=== PATIENT | male | born 1990 | race Caucasian/White ===

== ENCOUNTER 2017-01-28 10:02 | Emergency (ER) | payer SELFPAY ==
[~2017-01-28] VITALS: Ht 188 cm; Wt 83.9 kg
--- NOTE | 2017-01-28 10:11 | PHYS DOC ---
Adult General Chief Complaint Chief Complaint: OTHER COMPLAINTS HPI HPI Patient is a 26 year old male who presents with sores on his chin, abdomen, for head. He states his been there for one to 2 weeks. He said she tried [id number] anti-itch cream and it made it hurt worse. He denies any fevers chills nausea or vomiting. He's concerned that he might he got this from his previous roommate. He states he's had a tetanus shot within the last 5 years. He denies any allergies to medicines, he denies any past medical history , he being on any medicines currently. He states he noticed some lesions on his abdominal wall after he shaved it. Review of Systems Review of Systems Constitutional: Denies fever or chills [] Eyes: Denies change in visual acuity, redness, or eye pain [] HENT: Denies nasal congestion or sore throat [] Respiratory: Denies cough or shortness of breath [] Cardiovascular: No additional information not addressed in HPI [] GI: Denies abdominal pain, nausea, vomiting, bloody stools or diarrhea [] : Denies dysuria or hematuria [] Musculoskeletal: Denies back pain or joint pain [] Integument: Positive for rash. Neurologic: Denies headache, focal weakness or sensory changes [] Endocrine: Denies polyuria or polydipsia [] All other systems were reviewed and found to be within normal limits, except as documented in this note. Physical Exam Physical Exam Constitutional: Well developed, well nourished, no acute distress, non-toxic appearance. [] HENT: Normocephalic, atraumatic, bilateral external ears normal, oropharynx moist, no oral exudates, nose normal. [] Eyes: PERRLA, EOMI, conjunctiva normal, no discharge. [] Neck: Normal range of motion, no tenderness, supple, no stridor. [] Cardiovascular:Heart rate regular rhythm, no murmur [] Lungs & Thorax: Bilateral breath sounds clear to auscultation [] Abdomen: Bowel sounds normal, soft, no tenderness, no masses, no pulsatile masses. [] Skin: Erythema/rash on for had approximately 1 cm in diameter, crusty type lesions on chin, resembling impetigo, erythema and pustules noted on abdomen below bellybutton 4-5 lesions. Back: No tenderness, no CVA tenderness. [] Extremities: No tenderness, no cyanosis, no clubbing, ROM intact, no edema. [] Neurologic: Alert and oriented X 3, normal motor function, normal sensory function, no focal deficits noted. [] Psychologic: Affect normal, judgement normal, mood normal. [] EKG EKG [] Radiology/Procedures Radiology/Procedures [] Impressions: Cellulitis/impetigo Course & Med Decision Making Course & Med Decision Making Pertinent Labs and Imaging studies reviewed. (See chart for details) She does not appear to be sick or septic. His tetanus is up-to-date. He is being discharged with the myosin 300 mg every 6 hours for 7 days in addition to Bactroban to be used topically 3-4 times daily and to use Hibiclens every other day for week. Return precautions given for fevers, nausea, worsening symptoms. He does not have a primary care physician therefore he's been given the information to obtain one. Meri Disclaimer Dragon Disclaimer This electronic medical record was generated, in whole or in part, using a voice recognition dictation system. Departure Departure Impression: Primary Impression: Cellulitis Disposition: 01 HOME, SELF-CARE Condition: STABLE Patient Instructions: Cellulitis Additional Instructions: Your skin lesions looks like there and infected and need antibiotics. You can use Bactroban she can purchase [id number] which is an antibiotic ointment to be used 3-4 times daily on the areas of concern on your for head, chin, abdomen. He also need to purchase Hibiclens which he can purchase over-the- counter ear pharmacy. It is a SOAP and you will need to lab her up with it every other day for about a week. After you apply the soap/hibiclens, allow it to soak in for 10 minutes and then rinse it off with soap and water. You will also need to use clindamycin which is a prescription item that he take by mouth 4 times daily for the next 7 days. If you develop any fevers, nausea, this skin lesions looks worse, you have any other concerns please return back to emergency department. You were given a list of primary care physicians that you can follow-up with. Please pick one call them and schedule appointment with. Scripts Clindamycin Hcl (CLINDAMYCIN HCL) 300 Mg Capsule 300 MG PO QID for 7 Days, #28 CAP Prov: LAWANDA AVILA MD 01/28/17 LAWANDA AVILA MD Jan 28, 2017 10:11
[2017-01-28 10:15] VITALS: BP 155/79
[2017-01-28] MEDS ORDERED: CLIN300C8 PO (10:39)
[2017-01-28] MEDS ORDERED: CLINDAMYCIN HCL 150 MG CAPSULE. PO ONE (10:45)
== END 2017-01-28 10:55 | disposition home or self-care (01) ==
LOC: ER 10:02
DX: L03.211 Cellulitis of face (principal); L01.00 Impetigo, unspecified
CPT/HCPCS: 99283

== ENCOUNTER 2017-08-03 21:37 | Emergency (ER) | payer SELFPAY | END 2017-08-03 22:05 | disposition left against medical advice (07) | LOC: ER 21:37 | DX: R10.9 Unspecified abdominal pain (principal); Z53.21 Procedure and treatment not carried out due to patient leaving prior to being seen by health care provider ==

== ENCOUNTER 2018-04-09 06:58 | Emergency (ER) | payer SELFPAY ==
[~2018-04-09] VITALS: Ht 188 cm; Wt 83.9 kg
[~2018-04-09 06:58] MED LIST: CLIN300C8 PO
[2018-04-09] MEDS ORDERED: HYDR-3164 PO (07:51)
[2018-04-09] MEDS ORDERED: CEPH-264 PO (07:51)
--- NOTE | 2018-04-09 08:04 | PHYS DOC ---
Past Medical History Past Medical History: No Pertinent History, Bipolar, Hypertension Past Surgical History: No Surgical History Additional Information: 1 PACK A DAY. Alcohol Use: None Drug Use: None Adult General Chief Complaint Chief Complaint: DENTAL PROBLEM HPI HPI Patient is a 27 year old male with history of bipolar disorder presents with upper and lower left sided molar pain. Patient reports pain for the past 2 weeks. He is taken ibuprofen and Tylenol with limited relief. He is not participated routine dental care and has not scheduled appointment with the dentist. No dysphonia trismus, dysphagia or drooling. No other acute symptoms or complaints. Patient is a current smoker.[] Review of Systems Review of Systems Review symptoms as per history of present illness. All other review symptoms are negative. All other systems were reviewed and found to be within normal limits, except as documented in this note. Allergies Allergies Allergies Coded Allergies Type Severity Reaction Last Updated Verified No Known Drug Allergies 01/28/17 No Physical Exam Physical Exam Constitutional: Well developed, well nourished, no acute distress, non-toxic appearance. [] HENT: Normocephalic, atraumatic, bilateral external ears normal, oropharynx moist, mouth, widespread dental caries left upper, obvious soft tissue abscess. No dysphonia drooling or -. [] Eyes: PERRLA, EOMI, conjunctiva normal, no discharge. [] Neurologic: Alert and oriented X 3, normal motor function, normal sensory function, no focal deficits noted. [] Psychologic: Affect normal, judgement normal, mood normal. [] Current Patient Data Vital Signs Vital Signs Date Time Temp Pulse Resp B/P (MAP) Pulse Ox O2 Delivery O2 Flow Rate FiO2 04/09/18 07:22 97.9 100 20 126/69 (88) 97 Room Air 97.9 EKG EKG [] Radiology/Procedures Radiology/Procedures [] Course & Med Decision Making Course & Med Decision Making Pertinent Labs and Imaging studies reviewed. (See chart for details) [Patient has plans to follow-up with walk-in local dental clinic] Dragon Disclaimer Dragon Disclaimer This electronic medical record was generated, in whole or in part, using a voice recognition dictation system. Departure Departure Impression: Primary Impression: Dental caries Additional Impression: Dentalgia Disposition: 01 HOME, SELF-CARE Condition: GOOD Patient Instructions: Dental Pain, [id number] Additional Instructions: Please take antibiotics as directed and ibuprofen for pain. Take hydrocodone as needed for additional relief. Scripts Hydrocodone/Apap 5-325 (NORCO 5-325 TABLET) 1 Each Tablet 1 TAB PO TID, #10 TAB Prov: ERICKA REYES DO 04/09/18 Cephalexin (KEFLEX) 500 Mg Capsule 1 CAP PO TID, #30 CAP Prov: ERICKA REYES DO 04/09/18 Problem Qualifiers ERICKA REYES DO Apr 09, 2018 08:04
== END 2018-04-09 08:02 | disposition home or self-care (01) ==
LOC: ER 06:58
DX: K02.9 Dental caries, unspecified (principal); F31.9 Bipolar disorder, unspecified; I10 Essential (primary) hypertension; F17.200 Nicotine dependence, unspecified, uncomplicated
CPT/HCPCS: 99283

== ENCOUNTER 2019-05-12 19:35 | Emergency (ER) | payer BC ==
[~2019-05-12] VITALS: Ht 188 cm; Wt 68.1 kg
[~2019-05-12 19:35] MED LIST changes: +CEPH-264 PO; +HYDR-3164 PO
[2019-05-12 20:04] VITALS: BP 129/72
[2019-05-12] MEDS ORDERED: CEPH-264 PO (20:33)
[2019-05-12] MEDS ORDERED: MUPI22OI2 TP (20:33)
--- NOTE | 2019-05-12 20:33 | PHYS DOC ---
Past Medical History Past Medical History: No Pertinent History, Bipolar, Hypertension Past Surgical History: No Surgical History Smoking Status: Current Every Day Smoker Alcohol Use: None Drug Use: None Adult General Chief Complaint Chief Complaint: SKIN PROBLEM HPI HPI Patient is a 28 year old male who presents to the ER with complaints of a red swollen area to his left forearm since this morning. Pt states he thinks a spider bit him. He denies any fever. Pt denies any numbness, tingling, or weakness of the LUE. He denies any drainage or bleeding from the site. Pt denies any intravenous drug use, he admits to smoking marijuana. Currently the pain is a 7/10 on the pain scale if the area is touched, it is a constant 5/10. Pt denies taking any OTC pain medication for relief of his discomfort. Review of Systems Review of Systems Complete ROS is negative unless otherwise noted in HPI. Allergies Allergies Allergies Coded Allergies Type Severity Reaction Last Updated Verified No Known Drug Allergies 01/28/17 No Physical Exam Physical Exam See Above Constitutional: Well developed, well nourished, no acute distress, non-toxic appearance. [] HENT: Normocephalic, atraumatic, bilateral external ears normal, nose normal. [] Eyes: PERRLA, EOMI, conjunctiva normal, no discharge. [] Neck: Normal range of motion, no stridor. [] Cardiovascular:Heart rate regular rhythm Lungs & Thorax: Respirations even and unlabored, no retractions, no respiratory distress Skin: Warm, dry; 6 cm diameter area of erythema and warmth noted to anterior left forearm with 2 small pustules that drained a scant amount of green drainage consistent with insect bite with cellulitis Back: No tenderness Extremities: No bony tenderness, no cyanosis, no clubbing, ROM intact Neurologic: Alert and oriented X 3, no focal deficits noted. [] Psychologic: Affect normal, judgement normal, mood normal. [] Current Patient Data Vital Signs Vital Signs Date Time Temp Pulse Resp B/P (MAP) Pulse Ox O2 Delivery O2 Flow Rate FiO2 05/12/19 20:04 97.9 75 16 129/72 (91) 98 Room Air 97.9 EKG EKG [] Radiology/Procedures Radiology/Procedures [] Course & Med Decision Making Course & Med Decision Making Pertinent Labs and Imaging studies reviewed. (See chart for details) [] Dragon Disclaimer Dragon Disclaimer This electronic medical record was generated, in whole or in part, using a voice recognition dictation system. Departure Departure Impression: Primary Impression: Infected insect bite of forearm Additional Impression: Cellulitis of left forearm Disposition: HOME, SELF-CARE Condition: STABLE Referrals: NO PCP (PCP) Patient Instructions: Cellulitis, [id number], Insect Bite, [id number] Additional Instructions: Fill the prescriptions and use them as directed. You may take Tylenol or ibuprofen as needed for pain. Follow-up with your primary care doctor next week, return to the ER if you develop a fever, or if you experienced increased redness, warmth, or drainage from the site. Scripts Mupirocin (MUPIROCIN OINTMENT) 22 Gm Oint...g. 1 ROBIN TP TID for WOUND CARE for 7 Days, #1 TUBE 0 Refills Prov: GIOVANA BEYER APRN 05/12/19 Cephalexin (KEFLEX) 500 Mg Capsule 500 MG PO QID for 7 Days, #28 CAP 0 Refills Prov: GIOVANA BEYER APRN 05/12/19 Problem Qualifiers Primary Impression: Infected insect bite of forearm Encounter type: initial encounter Laterality: left Qualified Codes: S50.862A - Insect bite (nonvenomous) of left forearm, initial encounter; L08.9 - Local infection of the skin and subcutaneous tissue, unspecified; W57.XXXA - Bitten or stung by nonvenomous insect and other nonvenomous arthr opods, initial encounter GIOVANA BEYER APRN May 12, 2019 20:33
== END 2019-05-12 20:39 | disposition home or self-care (01) ==
LOC: ER 19:35
DX: S50.862A Insect bite (nonvenomous) of left forearm, initial encounter (principal); L03.114 Cellulitis of left upper limb; I10 Essential (primary) hypertension; F31.9 Bipolar disorder, unspecified; F17.200 Nicotine dependence, unspecified, uncomplicated; W57.XXXA Bitten or stung by nonvenomous insect and other nonvenomous arthropods, initial encounter; Y93.89 Activity, other specified; Y92.89 Other specified places as the place of occurrence of the external cause; Y99.8 Other external cause status
CPT/HCPCS: 99283

== ENCOUNTER 2020-01-24 03:12 | Emergency (ER) | payer SELFPAY ==
[~2020-01-24] VITALS: Ht 188 cm; Wt 80.0 kg
[2020-01-24 03:12] VITALS: BP 135/88
[~2020-01-24 03:12] MED LIST changes: +MUPI22OI2 TP
[2020-01-24] MEDS ORDERED: metroNIDAZOLE 500 MG TABLET PO ONE (03:30)
[2020-01-24] MEDS ORDERED: LIDOCAINE 2% VISCOUS 15 ML SOLUTION. MM ONE (03:30)
[2020-01-24] MEDS ORDERED: ONDANSETRON ODT 4 MG TAB.RAPDIS. PO ONE (03:30)
[2020-01-24] MEDS ORDERED: cefTRIAXone IM 250 MG VIAL IM ONE (03:30)
[2020-01-24] MEDS ORDERED: AZITHROMYCIN 250 MG TABLET. PO ONE (03:30)
[2020-01-24] MEDS ORDERED: IMIQ1CRE17 TP (03:37)
[2020-01-24] MEDS ORDERED: CLIN300C8 PO (03:39)
--- NOTE | 2020-01-24 03:44 | ED.ADGEN ---
Past Medical History Past Medical History: No Pertinent History, Bipolar, Hypertension Past Surgical History: No Surgical History Smoking Status: Current Every Day Smoker Alcohol Use: None Drug Use: None General Adult EDM: Chief Complaint: ABSCESS HPI: HPI: Patient is 29-year-old male who presents to the emergency room complaining of anal pain. He states that he developed these lesions several months ago but over the last couple of days they have gotten significantly more painful. He states that there is burning and itching around them. It is hard for him to sit down. He is having bowel movements but it is painful. He denies any other lesions. She denies any dysuria or penile discharge. He has had some discharge around the lesions and some bleeding. Review of Systems: Review of Systems: Complete ROS is negative unless otherwise documented in HPI Current Medications: Current Medications Medications (Trade) Dose Ordered Sig/Tootie Start Time Stop Time Status Last Admin Dose Admin Azithromycin (Zithromax) 1,000 mg 1X ONCE 01/24/20 03:30 01/24/20 03:31 DC 01/24/20 03:45 1,000 MG Ceftriaxone Sodium (Rocephin Im) 250 mg 1X ONCE 01/24/20 03:30 01/24/20 03:31 DC 01/24/20 03:45 250 MG Lidocaine HCl (Viscous Lidocaine) 15 ml 1X ONCE 01/24/20 03:30 01/24/20 03:31 DC 01/24/20 03:44 15 ML Metronidazole (Flagyl) 2,000 mg 1X ONCE 01/24/20 03:30 01/24/20 03:31 DC 01/24/20 03:45 2,000 MG Ondansetron HCl (Zofran Odt) 4 mg 1X ONCE 01/24/20 03:30 01/24/20 03:31 DC 01/24/20 03:45 4 MG Allergies: Allergies: Allergies Coded Allergies Type Severity Reaction Last Updated Verified No Known Drug Allergies 01/28/17 No Physical Exam: PE: General: Awake, alert, NAD. Well Nourished, well hydrated. Cooperative HEENT: Atraumatic, EOMI, PERRL, airway patent, moist oral mucosa Neck: Supple, trachea midline Respiratory: CTA bilaterally, normal effort, no wheezing/crackles CV: RRR, no murmur, cap refill <2 GI: Soft, nondistended, nontender, no masses : raised textured plaque lesions on bilateral rectal folds with surrounding erythema, no bleeding or discharge noted MSK: No obvious deformities Skin: Warm, dry, intact Neuro: A&O x3, speech NL, sensory and motor grossly intact, no focal deficits Psych: Normal affect, normal mood, not suicidal or homicidal Current Patient Data: Labs: Laboratory Tests Test 01/24/20 04:33 Urine Collection Type Unknown Urine Color Yellow Urine Clarity Clear Urine pH 6.5 (<5.0-8.0) Urine Specific [place] 1.020 (1.000-1.030) Urine Protein Negative mg/dL (NEG-TRACE) Urine Glucose (UA) Negative mg/dL (NEG) Urine Ketones (Stick) Negative mg/dL (NEG) Urine Blood Negative (NEG) Urine Nitrite Negative (NEG) Urine Bilirubin Negative (NEG) Urine Urobilinogen Dipstick 1.0 mg/dL (0.2 mg/dL) Urine Leukocyte Esterase Negative (NEG) Urine RBC Occ /HPF (0-2) Urine WBC Occ /HPF (0-4) Urine Squamous Epithelial Cells Occ /LPF Urine Amorphous Sediment Present /HPF Urine Bacteria 0 /HPF (0-FEW) Urine Mucus Marked /LPF Vital Signs: Vital Signs Date Time Temp Pulse Resp B/P (MAP) Pulse Ox O2 Delivery O2 Flow Rate FiO2 01/24/20 03:12 97.6 103 18 135/88 (104) 98 97.6 EKG: EKG: [] Heart Score: Risk Factors: Risk Factors: DM, Current or recent (<one month) smoker, HTN, HLP, family history of CAD, obesity. Risk Scores: Score 0 - 3: 2.5% MACE over next 6 weeks - Discharge Home Score 4 - 6: 20.3% MACE over next 6 weeks - Admit for Clinical Observation Score 7 - 10: 72.7% MACE over next 6 weeks - Early Invasive Strategies Radiology/Procedures: Radiology/Procedures: [] Course & Med Decision Making: Course & Med Decision Making Pertinent Labs and Imaging studies reviewed. (See chart for details) Patient is a 29-year-old male who presents to the emergency room with lesions around his rectum. These lesions are consistent with condyloma acuminata. It appears they may be infected. Will start antibiotics. CT pelvis ordered to rule out invasive lesions. Discussed with patient he will need to follow up with surgery and his best option without insurance may be [facility] or . Patient states understanding. Will treat for all other STDs. Meri Disclaimer: Meri Disclaimer: This electronic medical record was generated, in whole or in part, using a voice recognition dictation system. Departure Departure Impression: Primary Impression: Condyloma acuminatum in male Referrals: NO PCP (PCP) Patient Instructions: HPV Scripts Clindamycin Hcl (CLINDAMYCIN HCL) 300 Mg Capsule 1 CAP PO TID, #21 CAP Prov: RIYA AUGUSTIN MD 01/24/20 Imiquimod (ALDARA) 1 Each Cream.pack 1 ROBIN TP UD for 30 Days, #12 PACKET 0 Refills apply to the affected area(s) before bedtime 3 times per week and leave on skin for 6 to 10 hours Prov: RIYA AUGUSTIN MD 01/24/20 RIYA AUGUSTIN MD Jan 24, 2020 03:43
--- NOTE | 2020-01-24 04:21 | RAD ---
CT pelvis with contrast HISTORY: Anal lesion Axial helical images were obtained of the pelvis without contrast and axial coronal and sagittal reconstruction was performed. FINDINGS: There is multiple mildly enlarged lymph nodes in the groin bilaterally and along the iliac chain bilaterally. There is no free fluid. The prostate is not enlarged. The appendix is not well seen. IMPRESSION: Mild lymphadenopathy. This could be reactive. End impression PQRS Compliance Statement: One or more of the following individualized dose reduction techniques were utilized for this examination: 1. Automated exposure control 2. Adjustment of the mA and/or kV according to patient size 3. Use of iterative reconstruction technique Electronically signed by: Stu Hinson III, MD (01/24/2020 4:19 AM) [facility]
[2020-01-24 04:40] LABS: BILIRUBIN,URINE NEGATIVE (NEG); CLARITY,URINE CLEAR; COLOR,URINE YELLOW; NITRITE,URINE NEGATIVE (NEG); PH,URINE 6.5 (<5.0-8.0); PROTEIN,URINE NEGATIVE (NEG-TRACE)
[2020-01-24 04:45] LABS: AMORPHOUS SEDIMENT,UR PRESENT /HPF; BACTERIA,URINE 0 /HPF (0-FEW); RBC,URINE OCC /HPF (0-2); WBC,URINE OCC /HPF (0-4)
== END 2020-01-24 04:52 | disposition home or self-care (01) ==
LOC: ER 03:12
DX: A63.0 Anogenital (venereal) warts (principal); K62.89 Other specified diseases of anus and rectum; R30.9 Painful micturition, unspecified; L29.9 Pruritus, unspecified; F31.9 Bipolar disorder, unspecified; I10 Essential (primary) hypertension; F17.200 Nicotine dependence, unspecified, uncomplicated
CPT/HCPCS: 72192; 81001; 87491; 87591; 96372; 99284; J0696

== ENCOUNTER 2021-07-15 20:53 | Emergency (ER) | payer SELFPAY ==
[~2021-07-15] VITALS: Ht 188 cm; Wt 72.0 kg
[~2021-07-15 20:53] MED LIST changes: +CLIN-94 PO; -CLIN300C8 PO; +IMIQ1CRE17 TP
[2021-07-15 21:16] LABS: BASO # 0.1 x10^3/uL (0.0-0.2); BASO % 1 % (0-3); EOS # 0.1 x10^3/uL (0.0-0.7); EOS % 1 % (0-3); HEMATOCRIT 46.9 % (39.0-53.0); HEMOGLOBIN 16.2 g/dL (13.0-17.5); LYMPH # 2.1 x10^3/uL (1.0-4.8); LYMPH % 14 % (24-48); MEAN CORPUSCULAR HEMOGLOBIN 32 pg (25-35); MEAN CORPUSCULAR HGB CONC 35 g/dL (31-37); MEAN CORPUSCULAR VOLUME 92 fL (79-100); MONO % 6 % (0-9); NEUT # 12.5 x10^3/uL (1.8-7.7); NEUT % 79 % (31-73); PLATELET COUNT 353 x10^3/uL (140-400); RED BLOOD COUNT 5.07 x10^6/uL (4.30-5.70); RED CELL DISTRIBUTION WIDTH 13.3 % (11.5-14.5); WHITE BLOOD COUNT 15.8 x10^3/uL (4.0-11.0)
[2021-07-15 21:37] LABS: CALCIUM 10.3 mg/dL (8.5-10.1); CREATININE 1.6 mg/dL (0.7-1.3); GFR 51.7; POTASSIUM 4.4 mmol/L (3.5-5.1)
[2021-07-15 21:41] LABS: ACETAMIN < 2 mcg/ml (10-30); SALIC 3.8 mg/dL (2.8-20.0)
[2021-07-15 23:37] VITALS: BP 108/68
[2021-07-15] MEDS ORDERED: IV NORMAL SALINE 1000ML BAG 1,000 ML IV ONE (23:45)
--- NOTE | 2021-07-16 00:04 | PHYS DOC ---
Past Medical History Past Medical History: Anxiety, Bipolar, Hypertension Additional Past Medical Histor: PTSD; suicide attempt; drug abuse Past Surgical History: No Surgical History Smoking Status: Current Every Day Smoker Alcohol Use: Occasionally Drug Use: None General Adult EDM: Chief Complaint: DRUG ABUSE HPI: HPI: Patient is a 30-year-old male with significant history of meth use who presents today because he took too much meth. He feels his whole body shaking and became worried and called EMS. He also has significant thoughts of sadness and suicide. He had a previous suicide attempt. No fever or chills. No vomiting or diarrhea. He would like to get help with his addiction. Review of Systems: Review of Systems: Constitutional: Denies fever or chills. [] Eyes: Denies change in visual acuity. [] HENT: Denies nasal congestion or sore throat. [] Respiratory: Denies cough or shortness of breath. [] Cardiovascular: Denies chest pain or edema. [] GI: Denies abdominal pain, nausea, vomiting, bloody stools or diarrhea. [] : Denies dysuria. [] Musculoskeletal: Denies back pain or joint pain. [] Integument: Denies rash. [] Neurologic: Denies headache, focal weakness or sensory changes. [] Endocrine: Denies polyuria or polydipsia. [] Lymphatic: Denies swollen glands. [] Psychiatric: Denies depression or anxiety. [] Heart Score: C/O Chest Pain: No Risk Factors: Risk Factors: DM, Current or recent (<one month) smoker, HTN, HLP, family history of CAD, obesity. Risk Scores: Score 0 - 3: 2.5% MACE over next 6 weeks - Discharge Home Score 4 - 6: 20.3% MACE over next 6 weeks - Admit for Clinical Observation Score 7 - 10: 72.7% MACE over next 6 weeks - Early Invasive Strategies Current Medications: Current Medications Medications (Trade) Dose Ordered Sig/Tootie Start Time Stop Time Status Last Admin Dose Admin Lorazepam (Ativan Inj) 2 mg PRN Q2HRS PRN 07/15/21 21:00 07/15/21 21:12 2 MG Sodium Chloride 1,000 ml @ 1,000 mls/hr 1X ONCE 07/15/21 23:45 07/16/21 00:44 Allergies: Allergies: Allergies Coded Allergies Type Severity Reaction Last Updated Verified No Known Drug Allergies 01/28/17 No Physical Exam: PE: Constitutional: Well developed, well nourished, agitated HENT: Normocephalic, atraumatic, bilateral external ears normal, oropharynx moist, no oral exudates, nose normal. [] Eyes: PERRLA, EOMI, conjunctiva normal, no discharge. [] Neck: Normal range of motion, no tenderness, supple, no stridor. [] Cardiovascular tachycardic Lungs & Thorax: Bilateral breath sounds clear to auscultation [] Abdomen: Bowel sounds normal, soft, no tenderness, no masses, no pulsatile masses. [] Skin: Warm, dry, no erythema, no rash. [] Back: No tenderness, no CVA tenderness. [] Extremities: No tenderness, no cyanosis, no clubbing, ROM intact, no edema. [] Neurologic: Alert and oriented X 3, normal motor function, normal sensory function, no focal deficits noted. [] Psychologic: Affect normal, judgement normal, mood normal. [] Current Patient Data: Labs: Laboratory Tests Test 07/15/21 20:57 White Blood Count 15.8 x10^3/uL (4.0-11.0) H Red Blood Count 5.07 x10^6/uL (4.30-5.70) Hemoglobin 16.2 g/dL (13.0-17.5) Hematocrit 46.9 % (39.0-53.0) Mean Corpuscular Volume 92 fL (79-100) Mean Corpuscular Hemoglobin 32 pg (25-35) Mean Corpuscular Hemoglobin Concent 35 g/dL (31-37) Red Cell Distribution Width 13.3 % (11.5-14.5) Platelet Count 353 x10^3/uL (140-400) Neutrophils (%) (Auto) 79 % (31-73) H Lymphocytes (%) (Auto) 14 % (24-48) L Monocytes (%) (Auto) 6 % (0-9) Eosinophils (%) (Auto) 1 % (0-3) Basophils (%) (Auto) 1 % (0-3) Neutrophils # (Auto) 12.5 x10^3/uL (1.8-7.7) H Lymphocytes # (Auto) 2.1 x10^3/uL (1.0-4.8) Monocytes # (Auto) 1.0 x10^3/uL (0.0-1.1) Eosinophils # (Auto) 0.1 x10^3/uL (0.0-0.7) Basophils # (Auto) 0.1 x10^3/uL (0.0-0.2) Sodium Level 143 mmol/L (136-145) Potassium Level 4.4 mmol/L (3.5-5.1) Chloride Level 103 mmol/L (98-107) Carbon Dioxide Level 20 mmol/L (21-32) L Anion Gap 20 (6-14) H Blood Urea Nitrogen 24 mg/dL (8-26) Creatinine 1.6 mg/dL (0.7-1.3) H Estimated GFR (Cockcroft-Gault) 51.7 Glucose Level 71 mg/dL (70-99) Calcium Level 10.3 mg/dL (8.5-10.1) H Troponin I High Sensitivity 5 ng/L (4-75) Salicylates Level 3.8 mg/dL (2.8-20.0) Salicylate Last Dose Date Salicylate Last Dose Time Acetaminophen Level < 2 mcg/ml (10-30) L Acetaminophen Last Dose Date Acetaminophen Last Dose Time Ethyl Alcohol Level < 10 mg/dL (0-10) Laboratory Tests 07/15/21 20:57 Laboratory Tests 07/15/21 20:57 Vital Signs: Vital Signs Date Time Temp Pulse Resp B/P (MAP) Pulse Ox O2 Delivery O2 Flow Rate FiO2 07/15/21 21:53 114 16 108/69 (82) 94 Room Air 07/15/21 20:54 98.3 98.3 EKG: EKG: [] Radiology/Procedures: Radiology/Procedures: [] Course & Med Decision Making: Course & Med Decision Making Patient's heart rate has come down significantly per EMS telling me it was in the 150s. This was done with Ativan. Patient has been accepted to a drug rehab facility. They will come get in with a cab. Dragon Disclaimer: Dragon Disclaimer: This electronic medical record was generated, in whole or in part, using a voice recognition dictation system. Departure Departure Impression: Primary Impression: Methamphetamine abuse Disposition: 62 INPATIENT REHAB FACILITY Condition: STABLE Referrals: NO PCP (PCP) MAYELA GARCIA MD July 16, 2021 00:04
[2021-07-16 00:32] LABS: BARBITURATES NEG (NEG); BENZODIAZEPINES NEG (NEG); CANNABINOIDS NEG (NEG); COCAINE NEG (NEG); METHADONE NEG (NEG); OPIATES NEG (NEG); PHENCYCLIDINE NEG (NEG)
[2021-07-16 00:34] LABS: AMPHETAMINE/METHAMPHETAMINE POS (NEG)
== END 2021-07-16 00:21 | disposition home or self-care (01) ==
LOC: ER 20:53
DX: F15.10 Other stimulant abuse, uncomplicated (principal); I10 Essential (primary) hypertension; F31.9 Bipolar disorder, unspecified; F17.200 Nicotine dependence, unspecified, uncomplicated; F43.10 Post-traumatic stress disorder, unspecified
CPT/HCPCS: 36415; 80048; 80307; 80329; 84484; 85025; 96374; 99285; G0480; J2060